=== PATIENT | female | born 1960 | race American Indian/Alaskan Native ===

== ENCOUNTER 2016-12-19 23:41 | Emergency (ER) | payer BC ==
[2016-12-20] MEDS ORDERED: MOTRIN ONE (04:54)
[2016-12-20] MEDS ORDERED: TYLENOL ONE (04:54)
[2016-12-20] MEDS ORDERED: MOTRIN PO ONE (04:59)
[2016-12-20] MEDS ORDERED: TYLENOL PO ONE (04:59)
[2016-12-20] MEDS ORDERED: CLEOCIN IM ONE (05:25)
[2016-12-20] MEDS ORDERED: BOOSTRIX IM ONE (05:25)
[2016-12-20] MEDS ORDERED: TRIPLE ANTIBIOTIC TP ONE (05:25)
--- NOTE | 2016-12-20 05:25 | Emergency Department Report ---
Upper Extremity - HPI Chief Complaint: Extremity Injury, Upper Stated Complaint: PULLED NAIL OFF R THUMB Time Seen by Provider: 12/20/16 03:51 Upper Extremity: Right Thumb (right nailbed injury while at work. Patient complaining of pain to her right thumb at nailbed.) Occurred When: Today Mechanism: Hit with Object Severity: severe (10 out of 10) Symptoms: Yes Pain with Movement (right thumb), Yes Laceration or Abrasion ( reports cut and nail bed injury to right thumb), No Deformity, No Limited Range of Movement, No Numbness, No Weakness, No Swelling, No Bruising/Ecchymosis Other History: She and he reports that she injured her right thumb at nail bed a work. 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 She reports that the nail is damaged and she is having pain. She is diabetic. She says she has acrylic nail on top of her real nail. There is any numbness or tingling. She said there was a little bleeding but no bleeding now. No over- the-counter medication taken. Pain worse with movement and to touch and better with resting. Tetanus vaccine is not up-to-date ED Review of Systems ROS: Stated complaint: PULLED NAIL OFF R THUMB Other details as noted in HPI Comment: All other systems reviewed and negative Constitutional: no symptoms reported Respiratory: no symptoms reported Cardiovascular: denies: chest pain, palpitations, edema, syncope Gastrointestinal: denies: nausea, vomiting Musculoskeletal: arthralgia. denies: back pain, joint swelling Skin: change in hair/nails (right thumb at nail injury/pain) Neurological: denies: numbness, paresthesias ED Past Medical Hx - Past Medical History Previous Medical History?: Yes Hx Hypertension: Yes Hx Heart Attack/AMI: Yes Hx Congestive Heart Failure: No Hx Diabetes: Yes Hx Asthma: No Hx COPD: No Additional medical history: OBESITY - Surgical History Past Surgical History?: Yes Hx Coronary Stent: Yes Additional Surgical History: HYSTERECTOMY. - Family History Family history: diabetes, hypertension - Social History Smoking Status: Never Smoker Substance Use Type: None - Medications Home Medications: Home Medications Medication Instructions Recorded Confirmed Last Taken Type Aspirin [Aspirin TAB] 325 mg PO QDAY #30 tablet 03/25/15 Unknown Rx AtorvaSTATin [Lipitor] 80 mg PO QHS #60 tablet 03/25/15 Unknown Rx Insulin NPH/Regular [NovoLIN 70/30] 10 unit SQ BIDDIAB #3 ml 03/25/15 Unknown Rx Losartan [Cozaar] 50 mg PO QDAY #60 tablet 03/25/15 Unknown Rx Metoprolol [Lopressor TAB] 25 mg PO BID #60 tablet 03/25/15 Unknown Rx Prasugrel [Effient] 10 mg PO QDAY #30 tablet 03/25/15 Unknown Rx Syringe & Needle,Insulin,1 ml 1 each MC BID #60 disp.syrin 03/25/15 Unknown Rx [[facility] Syringes] Acetaminophen/Codeine [Tylenol 1 tab PO Q6H PRN #12 tab 12/20/16 Unknown Rx /Codeine # 3 tab] Cephalexin [Keflex] 500 mg PO Q8HR #21 cap 12/20/16 Unknown Rx Upper Extremity Exam - Exam General: Vital signs noted. No distress. Alert and acting appropriately. This is a 56-year-old female well-nourished well-developed in no acute distress. Head and Torso: No HEENT Abnormality (normal exam), No Neck Tenderness (normal exam), No Chest/Lungs Abnormality (clear to auscultation bilaterally, no rhonchi wheezes or rales.), No Abdominal Tenderness (Normal examination), No Back Tenderness (normal examination) Shoulder Exam: Yes Normal Range of Motion in Shoulder, No Shoulder Tenderness, No Clavicle Tenderness, No Shoulder Deformity, No AC Joint Tenderness Arm Exam: No Arm/Humerus Tenderness, No Arm Deformity Elbow: Yes Normal Range of Motion in Elbow, No Elbow Tenderness, No Elbow Deformity Forearm: No Forearm Tenderness, No Forearm Deformity, No Pain with Pronation, No Pain with Supination Wrist: Yes Normal ROM in Wrist, No Wrist Tenderness, No Wrist Deformity, No Snuffbox Tenderness, No Pain with Axial Thumb Compression Hand: Yes Digit Tenderness (right thumb around nail bed. Patient with nail intact to the nail bed of her right thumb but mildly loose with crack to proximal nail close to cuticle. Mild abrasion noted to tuft of right thumb. Mild swelling without any bony tenderness. Nail to right thumb with mild damage. Patient wearing acrylic nail.), Yes Normal ROM in Digit(s), No Hand Tenderness, No Hand Deformity, No Digit(s) Deformity, No Tendon Dysfunction CMS Exam: Yes Normal Distal Pulses, Yes Normal Capillary Refill, Yes Normal Distal Sensation, No Broken Skin ( abrasion to the tuft of right thumb ) ED Course Vital Signs 12/19/16 12/19/16 23:45 23:48 Temperature 98.5 F 98.5 F Pulse Rate 96 H 95 H Respiratory 20 20 Rate Blood Pressure 148/105 Blood Pressure 148/105 [Right] O2 Sat by Pulse 99 99 Oximetry Vital Signs 12/19/16 12/19/16 12/20/16 23:45 23:48 06:16 Temperature 98.5 F 98.5 F 97.8 F Pulse Rate 96 H 95 H 64 Respiratory 20 20 16 Rate Blood Pressure 148/105 Blood Pressure 148/105 161/99 [Right] O2 Sat by Pulse 99 99 100 Oximetry - Reevaluation(s) Reevaluation #1: 12/20/16 06:21 Patient given Motrin 800 mg emergency room and Tylenol for pain which relieved her pain. Right thumb soaked in iodine and water, cleansed with normal saline and Neosporin ointment placed the site. Patient given Boostrix 0.5 mls to update tetanus. She was given clindamycin 600 mg IM. Pressure was elevated in triage but is better now. ED Medical Decision Making - Medical Decision Making ED course: The right thumb injury at nail without any nail avulsion. Nail is still intact to nail bed but there is damaged to proximal nail on right thumb close to cuticle. He has small abrasion to the tuft of her right thumb. Right thumb tender to palpate. Nail is still adjacent to her nailbed to right thumb. Patient has acrylic nail in place. I discussed this case with Dr. Romero as patient is a diabetic. It was decided the patient will follow up with her primary care physician for further evaluation and treatment and referral to appropriate doctor for evaluation of injured nail to right thumb. Because the patient that she will need to have acrylic nail removed from right thumb but she will need to discuss this with her primary care physician. She was given Motrin 800 mg by mouth Tylenol 650 mg by mouth in the emergency room which relieved her pain. Rt thumb soaked in betadineand water, cleansed with normal saline, Neosporin ointment placed the site in sterile dry dressing placed. Pt has no injury to hand or wrist. No radiation of pain. Patient given Cleocin 600 mg IM and streaks 0.5 mL injection in emergency room without any adverse reaction. Discharged home in stable condition Assessment/plan 1. Nail injury to right thumb without any avulsion of nail. 2. Right thumb pain secondary to injury 3. Abrasion right thumb 4. personal history of diabetes and being followed by her primary care. Patient given prescription for Keflex, Tylenol 3 and to follow up with her primary care physician in 24 hours Critical care attestation.: If time is entered above; I have spent that time in minutes in the direct care of this critically ill patient, excluding procedure time. ED Disposition Clinical Impression: Pain of right thumb Contusion of right thumb with damage to nail Qualifiers: Encounter type: initial encounter Qualified Code(s): S60.111A - Contusion of right thumb with damage to nail, initial encounter Abrasion of right thumb Qualifiers: Encounter type: initial encounter Qualified Code(s): S60.311A - Abrasion of right thumb, initial encounter Disposition: - TO HOME OR SELFCARE Is pt being admited?: No Does the pt Need Aspirin: No Condition: Stable Instructions: Contusion in Adults (ED), Arthralgia (ED), Abrasion (ED) Additional Instructions: Please follow up with your primary care within 24 hours duration to nail in right thumb Please keep affected area clean and dry take antibiotic as prescribed Tylenol 3 causes drowsiness so please do not drive or operate heavy machinery while taking this medicine Prescriptions: Acetaminophen/Codeine [Tylenol /Codeine # 3 tab] 1 tab PO Q6H PRN #12 tab PRN Reason: Pain Cephalexin [Keflex] 500 mg PO Q8HR #21 cap Referrals: TEX MEJIA MD [Primary Care Provider] - 24 Hours Forms: Work/School Release Form(ED)
[2016-12-20] MEDS ORDERED: NACL 0.9% 500 ML IR ONE (05:26)
[2016-12-20 06:17] VITALS: BP 161/99
== END 2016-12-20 06:51 | disposition home or self-care (01) ==
LOC: ED 23:41
DX: S60.111A Contusion of right thumb with damage to nail, initial encounter (principal); I10 Essential (primary) hypertension; I25.2 Old myocardial infarction; E11.9 Type 2 diabetes mellitus without complications; Z95.1 Presence of aortocoronary bypass graft; Z79.82 Long term (current) use of aspirin; Z79.4 Long term (current) use of insulin; X58.XXXA Exposure to other specified factors, initial encounter; Y93.89 Activity, other specified; Y92.89 Other specified places as the place of occurrence of the external cause; Y99.8 Other external cause status
CPT/HCPCS: 90471; 90715; 96372; 99283; A6250